=== PATIENT | male | born 1990 | race Caucasian/White ===

== ENCOUNTER 2025-01-31 15:42 | Emergency (ER) | payer OTHER ==
[2025-01-31] MEDS ORDERED: XYLOCAINE 1% HCL 20 ML MDV ONE (16:17)
== END 2025-01-31 16:46 | disposition left against medical advice (07) ==
LOC: ED 15:42
DX: Z53.21 Procedure and treatment not carried out due to patient leaving prior to being seen by health care provider (principal)